=== PATIENT | female | born 1990 | race Caucasian/White ===

== ENCOUNTER → 2017-05-09 | Outpatient (REF) ==
[~2017-05-09] MED LIST: ACET50TA PO; ACET65TA; FERR325T; IBUP80TA PO; MACROBID; MAGN500T2; No home meds; ZOLO50TA PO; prenatal vitamin
--- NOTE | 2017-05-09 09:43 | REP ---
There is an Isabel thoracic spine three views: Comparison is 04/01/2011. There is mild scoliosis convex left in the mid-thoracic spine and right at the thoracolumbar junction. This is unchanged. Vertebral body heights, interspacing alignment are otherwise unremarkable. Mineralization is normal. The pedicles are unremarkable. There are surgical clips in the abdominal right upper quadrant. Impression: Minimal scoliosis, unchanged. Otherwise, negative thoracic spine. Signed by Evelio Dasilva MD 05/09/2017 09:34 A
== END ==
LOC: M SMT 09:07
PROVIDERS: ATTEND Internal Medicine
DX: M54.5 Low back pain (principal)

== ENCOUNTER → 2021-10-06 | Outpatient (REF) ==
[~2021-10-06] MED LIST changes: -ACET50TA PO; +BOTO10VL IM; +CYCL-707 PO; +EQ S0.65 NARES; +GABA-283 PO; +KETO10TAB PO; +MAPA500T2 PO; +MONT10TA10 PO; +PRAZ2CAP PO; +SERT-138 PO; +TOPA100T12 PO; +TRAZ-252 PO; +VITATAB74 PO; +ZOLP5TAB PO
[2021-10-06 15:51] LABS: RSV AMPLIFICATION NEGATIVE (NEGATIVE)
== END ==
LOC: MERGE 11:29 → M LABSMTC 11:29
PROVIDERS: ATTEND Family Medicine
DX: Z11.52 Encounter for screening for COVID-19 (principal); Z20.822 Contact with and (suspected) exposure to COVID-19

== ENCOUNTER → 2021-10-20 | Outpatient (REF) | LOC: M EMP 10:20 | PROVIDERS: ATTEND Family Medicine | DX: Z11.52 Encounter for screening for COVID-19 (principal); Z20.822 Contact with and (suspected) exposure to COVID-19 ==

== ENCOUNTER → 2022-01-18 | Outpatient (CLI) | payer OTHER ==
[~2022-01-18] MED LIST changes: -MONT10TA10 PO; +MONT10TA97 PO
[2022-01-18 14:05] LABS: ALBUMIN 3.5 GM/DL (3.2-5.2); ALT/SGPT 22 U/L (12-78); BILIRUBIN,TOTAL 0.2 MG/DL (0.2-1.0); BLOOD UREA NITROGEN 12 MG/DL (7-18); CALCIUM LEVEL 8.6 MG/DL (8.5-10.1); CARBON DIOXIDE LEVEL 24 MEQ/L (21-32); CHLORIDE LEVEL 110 MEQ/L (98-107); CHOLESTEROL LEVEL 176 MG/DL (<200); CHOLESTEROL RISK RATIO 4.888 (<5); CREATININE FOR GFR 0.77 MG/DL (0.55-1.30); GLOMERULAR FILTRATION RATE > 60.0 (>60); GLUCOSE, FASTING 100 MG/DL (70-100); HDL CHOLESTEROL 36 MG/DL (>40); LDL CHOLESTEROL 113 MG/DL (<100); NON-HDL-C 140 MG/DL; POTASSIUM SERUM 4.1 MEQ/L (3.5-5.1); SODIUM LEVEL 140 MEQ/L (136-145); TOTAL PROTEIN 6.7 GM/DL (6.4-8.2); TRIGLYCERIDES LEVEL 134 MG/DL (<150)
== END ==
LOC: M LAB 12:34
PROVIDERS: ATTEND Nurse Practitioner Family
DX: Z00.00 Encounter for general adult medical examination without abnormal findings (principal)

== ENCOUNTER → 2022-04-21 | Outpatient (CLI) | payer OTHER ==
[2022-04-21 18:16] LABS: HCG, SERUM QUALITATIVE NEGATIVE (NEGATIVE)
[2022-04-21 18:45] LABS: HCG, SERUM QUANTITATIVE < 1.0 MIU/ML
== END ==
LOC: M LAB 16:33
PROVIDERS: ATTEND Nurse Practitioner Family
DX: N91.1 Secondary amenorrhea (principal)

== ENCOUNTER → 2022-06-29 | Outpatient (REF) | payer OTHER ==
[2022-06-29 18:55] LABS: APPEARANCE, URINE MANUAL HAZY (CLEAR); COLOR, URINE MANUAL ORANGE (YELLOW); GLUCOSE, URINE (UA) MANUAL OBSCURED mg/dL (NEGATIVE); PROTEIN, URINE MANUAL OBSCURED mg/dL (NEGATIVE)
[2022-06-29 18:56] LABS: BILIRUBIN, URINE MANUAL OBSCURED (NEGATIVE); BLOOD URINE MANUAL POSITIVE (NEGATIVE); KETONE, URINE MANUAL OBSCURED mg/dL (NEGATIVE); LEUKOCYTE ESTERASE, URINE MAN POSITIVE (NEGATIVE); NITRITE, URINE MANUAL OBSCURED (NEGATIVE); UROBILINOGEN, URINE MANUAL OBSCURED mg/dl (NORMAL)
[2022-06-29 19:04] LABS: BACTERIA, URINE MOD AMOUNT; HYALINE CAST, URINE NONE SEEN /lpf (0-1); RBC, URINE NONE SEEN /hpf (0-3); SQUAMOUS EPITHELIAL CELL URINE MOD AMOUNT /hpf (SMALL AMT); WBC, URINE 15-20 /hpf (0-3)
== END ==
LOC: M LAB REF 17:09
PROVIDERS: ATTEND Nurse Practitioner Family
DX: R30.0 Dysuria (principal)

== ENCOUNTER 2022-08-05 00:04 | Emergency (ER) | payer OTHER ==
[~2022-08-05] VITALS: Ht 152.4 cm; Wt 71.4 kg
[2022-08-05 00:06] VITALS: BP 124/73
== END 2022-08-05 03:30 | disposition left against medical advice (07) ==
LOC: M ED 00:04
DX: Z53.21 Procedure and treatment not carried out due to patient leaving prior to being seen by health care provider (principal)

== ENCOUNTER 2022-09-06 19:43 | Emergency (ER) | payer OTHER ==
[~2022-09-06] VITALS: Ht 154.9 cm; Wt 71.3 kg
[2022-09-06] MEDS ORDERED: IBUPROFEN 600MG TAB PO ONE (23:05)
[2022-09-06] MEDS ORDERED: GNPLIQ67 PO (23:59)
[2022-09-06] MEDS ORDERED: DAYT1LIQ PO (23:59)
[2022-09-07 00:19] VITALS: BP 112/61
== END 2022-09-07 00:20 | disposition home or self-care (01) ==
LOC: M ED 19:43
DX: J06.9 Acute upper respiratory infection, unspecified (principal); F41.9 Anxiety disorder, unspecified; F32.9 Major depressive disorder, single episode, unspecified; J30.1 Allergic rhinitis due to pollen; F17.200 Nicotine dependence, unspecified, uncomplicated; Z79.899 Other long term (current) drug therapy; Z88.2 Allergy status to sulfonamides

== ENCOUNTER → 2022-09-12 | Outpatient (CLI) | payer OTHER ==
[~2022-09-12] MED LIST changes: +DAYT1LIQ PO; +GNPLIQ67 PO
== END ==
LOC: M WHC 12:20
PROVIDERS: ATTEND Registered Nurse
DX: N63.32 Unspecified lump in axillary tail of the left breast (principal)

== ENCOUNTER → 2022-10-26 | Outpatient (CLI) | payer OTHER ==
[2022-10-26 15:04] LABS: BASO % 0.3 % (0.0-1.0); EOS # 0.1 10^3/uL (0.0-0.5); EOS % 1.2 % (0.0-3.0); HEMATOCRIT 44.5 % (36.0-47.0); LYMPH # 2.6 10^3/uL (1.5-5.0); LYMPH % 23.1 % (24.0-44.0); MEAN CORPUSCULAR HEMOGLOBIN 29.6 pg (27.0-33.0); MEAN CORPUSCULAR HGB CONC 33.7 g/dl (32.0-36.5); MEAN CORPUSCULAR VOLUME 87.8 fl (80.0-96.0); MONO # 0.7 10^3/uL (0.0-0.8); MONO % 5.9 % (2.0-8.0); NEUTROPHILS # 7.8 10^3/uL (1.5-8.5); NEUTROPHILS % 69.2 % (36.0-66.0); PLATELET COUNT, AUTOMATED 396 10^3/uL (150-450); RED BLOOD COUNT 5.07 10^6/uL (4.00-5.40); WHITE BLOOD COUNT 11.3 10^3/uL (4.0-10.0)
[2022-10-26 15:15] LABS: INR 0.95; PROTHROMBIN TIME 12.9 SECONDS (12.5-14.5)
[2022-10-26 15:31] LABS: ALBUMIN 3.7 G/DL (3.2-5.2); ALKALINE PHOSPHATASE 105 U/L (46-116); ALT/SGPT 18 U/L (7.0-40); AST/SGOT 20 U/L (<34); BILIRUBIN,TOTAL 0.5 MG/DL (0.3-1.2); BLOOD UREA NITROGEN 9 MG/DL (9-23); CARBON DIOXIDE LEVEL 23 MMOL/L (20-31); CHLORIDE LEVEL 104 MMOL/L (98-107); CREATININE FOR GFR 0.56 MG/DL (0.55-1.30); GLOMERULAR FILTRATION RATE > 60.0 (>60); GLUCOSE, FASTING 89 MG/DL (60-100); POTASSIUM SERUM 3.8 MMOL/L (3.5-5.1); SODIUM LEVEL 141 MMOL/L (136-145); TOTAL PROTEIN 6.7 G/DL (5.7-8.2)
[2022-10-26 15:33] LABS: FREE T4 1.08 NG/DL (0.89-1.76); THYROID STIMULATING HORMONE 0.528 uIU/ML (0.55-4.78)
== END ==
LOC: M LAB 14:02
PROVIDERS: ATTEND Registered Nurse
DX: L98.9 Disorder of the skin and subcutaneous tissue, unspecified (principal)

== ENCOUNTER 2023-01-03 23:47 | Emergency (ER) | payer OTHER ==
[~2023-01-03] VITALS: Ht 152.4 cm; Wt 65.4 kg
[2023-01-04 00:13] LABS: URINE PREG TEST NEGATIVE (NEGATIVE)
[2023-01-04 00:20] LABS: APPEARANCE, URINE HAZY (CLEAR); BACTERIA, URINE AUTO 1+ (NEGATIVE); BILIRUBIN, URINE AUTO NEGATIVE (NEGATIVE); BLOOD, URINE BLOOD 3+ (NEGATIVE); COLOR, URINE YELLOW (YELLOW); GLUCOSE, URINE (UA) AUTO NEGATIVE (NEGATIVE); KETONE, URINE AUTO NEGATIVE (NEGATIVE); LEUKOCYTE ESTERASE, URINE AUTO 1+ (NEGATIVE); MUCUS, URINE SMALL (NEGATIVE); NITRITE, URINE AUTO NEGATIVE (NEGATIVE); PROTEIN, URINE AUTO NEGATIVE (NEGATIVE); RBC, URINE AUTO 3 /HPF (0-3); SPECIFIC GRAVITY URINE AUTO 1.009 (1.002-1.035); SQUAMOUS EPITHELIAL CELL UR AU 11 /HPF (0-6); UROBILINOGEN, URINE AUTO 0.2 mg/dL (0.0-2.0); WBC, URINE AUTO 5 /HPF (0-3)
[2023-01-04 00:53] LABS: BASO # 0.1 10^3/uL (0.0-0.2); BASO % 0.4 % (0.0-1.0); EOS # 0.2 10^3/uL (0.0-0.5); EOS % 1.1 % (0.0-3.0); HEMATOCRIT 44.5 % (36.0-47.0); HEMOGLOBIN 14.9 g/dl (12.0-15.5); LYMPH # 3.2 10^3/uL (1.5-5.0); MEAN CORPUSCULAR HEMOGLOBIN 29.9 pg (27.0-33.0); MEAN CORPUSCULAR HGB CONC 33.5 g/dl (32.0-36.5); MEAN CORPUSCULAR VOLUME 89.4 fl (80.0-96.0); MONO # 0.8 10^3/uL (0.0-0.8); MONO % 5.9 % (2.0-8.0); NEUTROPHILS # 9.1 10^3/uL (1.5-8.5); NEUTROPHILS % 68.4 % (36.0-66.0); PLATELET COUNT, AUTOMATED 352 10^3/uL (150-450); RED BLOOD COUNT 4.98 10^6/uL (4.00-5.40); WHITE BLOOD COUNT 13.3 10^3/uL (4.0-10.0)
[2023-01-04] MEDS ORDERED: ACETAMINOPHEN 325 MG TAB PO ONE (02:35)
[2023-01-04 03:01] LABS: GC DNA AMPLIFICATION NEGATIVE (NEGATIVE)
[2023-01-04 03:23] VITALS: BP 133/81
== END 2023-01-04 03:31 | disposition home or self-care (01) ==
LOC: M ED 23:47
DX: N93.9 Abnormal uterine and vaginal bleeding, unspecified (principal); F17.200 Nicotine dependence, unspecified, uncomplicated

== ENCOUNTER 2023-01-12 22:52 | Emergency (ER) | payer OTHER ==
[~2023-01-12] VITALS: Ht 152.4 cm; Wt 65.7 kg
[2023-01-12 22:53] VITALS: BP 134/87
[2023-01-12] MEDS ORDERED: CVS10CAP7 PO (22:58)
== END 2023-01-13 02:01 | disposition left against medical advice (07) ==
LOC: M ED 22:52
DX: Z53.21 Procedure and treatment not carried out due to patient leaving prior to being seen by health care provider (principal)

== ENCOUNTER 2023-02-14 21:46 | Emergency (ER) | payer OTHER ==
[~2023-02-14] VITALS: Ht 152.4 cm; Wt 64.0 kg
[2023-02-14 21:46] VITALS: BP 116/80
[~2023-02-14 21:46] MED LIST changes: +CVS10CAP7 PO
[2023-02-14] MEDS ORDERED: ALBUTEROL SULFATE 2.5MG/0.5ML INH NEB SOLN NEB ONE (23:15)
[2023-02-14] MEDS ORDERED: ACETAMINOPHEN 325 MG TAB PO ONE (23:45)
== END 2023-02-15 01:05 | disposition home or self-care (01) ==
LOC: M ED 21:46
DX: J06.9 Acute upper respiratory infection, unspecified (principal); J45.909 Unspecified asthma, uncomplicated; G43.909 Migraine, unspecified, not intractable, without status migrainosus; F41.9 Anxiety disorder, unspecified; F32.A Depression, unspecified; F17.210 Nicotine dependence, cigarettes, uncomplicated; Z88.2 Allergy status to sulfonamides; Z79.899 Other long term (current) drug therapy

== ENCOUNTER 2023-10-25 01:23 | Emergency (ER) | payer OTHER ==
[~2023-10-25] VITALS: Ht 152.4 cm; Wt 65.4 kg
[2023-10-25 01:23] VITALS: BP 140/65; TEMP 97.3; O2SAT 97
[~2023-10-25 01:23] MED LIST changes: +AMOX875T2 PO; +CIPR7.5D5 OTIC; -GABA-283 PO; +GABA-284 PO
[2023-10-25 02:32] LABS: BASO % 0.3 % (0.0-1.0); EOS # 0.2 10^3/uL (0.0-0.5); EOS % 1.5 % (0.0-3.0); HEMATOCRIT 44.7 % (36.0-47.0); HEMOGLOBIN 14.6 g/dl (12.0-15.5); LYMPH # 3.1 10^3/uL (1.5-5.0); LYMPH % 26.6 % (24.0-44.0); MEAN CORPUSCULAR HEMOGLOBIN 29.6 pg (27.0-33.0); MEAN CORPUSCULAR HGB CONC 32.7 g/dl (32.0-36.5); MEAN CORPUSCULAR VOLUME 90.5 fl (80.0-96.0); MONO # 0.9 10^3/uL (0.0-0.8); MONO % 7.3 % (2.0-8.0); NEUTROPHILS # 7.5 10^3/uL (1.5-8.5); PLATELET COUNT, AUTOMATED 358 10^3/uL (150-450); RED BLOOD COUNT 4.94 10^6/uL (4.00-5.40); WHITE BLOOD COUNT 11.7 10^3/uL (4.0-10.0)
[2023-10-25 03:01] LABS: LIPASE 36 U/L (12-53)
[2023-10-25 03:03] LABS: ALBUMIN 3.8 G/DL (3.2-5.2); ALKALINE PHOSPHATASE 105 U/L (46-116); ALT/SGPT 13 U/L (7.0-40); AST/SGOT 16 U/L (<34); BILIRUBIN,DIRECT < 0.1 MG/DL (<0.4); BILIRUBIN,TOTAL 0.3 MG/DL (0.3-1.2); BLOOD UREA NITROGEN 8 MG/DL (9-23); CALCIUM LEVEL 9.9 MG/DL (8.5-10.1); CARBON DIOXIDE LEVEL 29 MMOL/L (20-31); CHLORIDE LEVEL 106 MMOL/L (98-107); CREATININE FOR GFR 0.52 MG/DL (0.55-1.30); GLOMERULAR FILTRATION RATE > 60.0 (>60); GLUCOSE, FASTING 94 MG/DL (60-100); POTASSIUM SERUM 4.2 MMOL/L (3.5-5.1); SODIUM LEVEL 139 MMOL/L (136-145); TOTAL PROTEIN 7.4 G/DL (5.7-8.2)
== END 2023-10-25 04:46 | disposition left against medical advice (07) ==
LOC: M ED 01:23
DX: Z53.21 Procedure and treatment not carried out due to patient leaving prior to being seen by health care provider (principal)

== ENCOUNTER → 2023-12-20 | Outpatient (REF) | payer OTHER ==
[2023-12-20 17:07] LABS: BASO % 0.3 % (0.0-1.0); EOS # 0.1 10^3/uL (0.0-0.5); EOS % 1.5 % (0.0-3.0); HEMATOCRIT 39.9 % (36.0-47.0); HEMOGLOBIN 13.3 g/dl (12.0-15.5); LYMPH # 2.1 10^3/uL (1.5-5.0); LYMPH % 24.2 % (24.0-44.0); MEAN CORPUSCULAR HEMOGLOBIN 29.7 pg (27.0-33.0); MEAN CORPUSCULAR HGB CONC 33.3 g/dl (32.0-36.5); MEAN CORPUSCULAR VOLUME 89.1 fl (80.0-96.0); MONO # 0.6 10^3/uL (0.0-0.8); MONO % 7.1 % (2.0-8.0); NEUTROPHILS # 5.8 10^3/uL (1.5-8.5); NEUTROPHILS % 66.7 % (36.0-66.0); PLATELET COUNT, AUTOMATED 325 10^3/uL (150-450); RED BLOOD COUNT 4.48 10^6/uL (4.00-5.40); WHITE BLOOD COUNT 8.7 10^3/uL (4.0-10.0)
[2023-12-20 17:18] LABS: ALBUMIN 3.3 G/DL (3.2-5.2); ALKALINE PHOSPHATASE 83 U/L (46-116); ALT/SGPT 18 U/L (7.0-40); AST/SGOT 18 U/L (<34); BILIRUBIN,TOTAL 0.3 MG/DL (0.3-1.2); BLOOD UREA NITROGEN 5 MG/DL (9-23); CALCIUM LEVEL 8.4 MG/DL (8.5-10.1); CARBON DIOXIDE LEVEL 26 MMOL/L (20-31); CHLORIDE LEVEL 107 MMOL/L (98-107); CHOLESTEROL LEVEL 161 MG/DL (<200); CHOLESTEROL RISK RATIO 4.96 (<5); CREATININE FOR GFR 0.59 MG/DL (0.55-1.30); GLOMERULAR FILTRATION RATE > 60.0 (>60); GLUCOSE, FASTING 111 MG/DL (60-100); HDL CHOLESTEROL 32.4 MG/DL (>40); LDL CHOLESTEROL 95.6 MG/DL (<100); MAGNESIUM LEVEL 1.7 MG/DL (1.8-2.4); NON-HDL-C 128.6 MG/DL; POTASSIUM SERUM 3.9 MMOL/L (3.5-5.1); SODIUM LEVEL 137 MMOL/L (136-145); TOTAL PROTEIN 6.3 G/DL (5.7-8.2); TRIGLYCERIDES LEVEL 165 MG/DL (<150)
[2023-12-20 17:20] LABS: THYROID STIMULATING HORMONE 3.733 uIU/ML (0.55-4.78)
[2023-12-20 17:22] LABS: HCG, SERUM QUALITATIVE NEGATIVE (NEGATIVE); TOTAL 25(OH) VITAMIN D 32.5 NG/ML (20.0-100.0)
[2023-12-20 17:46] LABS: HIV 1&2 SCREEN NEGATIVE (NEGATIVE)
[2023-12-20 17:54] LABS: HEPATITIS C VIRUS ABY INDEX 0.02 INDEX (<0.8)
[2023-12-20 18:11] LABS: HEMOGLOBIN A1c 4.9 % (4.0-6.0)
== END ==
LOC: M LAB REF 16:21
PROVIDERS: ATTEND Physician Assistant
DX: Z31.9 Encounter for procreative management, unspecified (principal); E66.9 Obesity, unspecified; E55.9 Vitamin D deficiency, unspecified; R53.83 Other fatigue

== ENCOUNTER → 2024-01-22 | Outpatient (CLI) | payer OTHER ==
[2024-01-22 10:32] LABS: BASO % 0.3 % (0.0-1.0); EOS # 0.2 10^3/uL (0.0-0.5); EOS % 1.2 % (0.0-3.0); HEMATOCRIT 42.6 % (36.0-47.0); HEMOGLOBIN 14.1 g/dl (12.0-15.5); LYMPH # 1.9 10^3/uL (1.5-5.0); LYMPH % 15.1 % (24.0-44.0); MEAN CORPUSCULAR HEMOGLOBIN 29.5 pg (27.0-33.0); MEAN CORPUSCULAR HGB CONC 33.1 g/dl (32.0-36.5); MEAN CORPUSCULAR VOLUME 89.1 fl (80.0-96.0); MONO # 0.8 10^3/uL (0.0-0.8); MONO % 5.8 % (2.0-8.0); NEUTROPHILS # 9.9 10^3/uL (1.5-8.5); NEUTROPHILS % 77.1 % (36.0-66.0); PLATELET COUNT, AUTOMATED 341 10^3/uL (150-450); RED BLOOD COUNT 4.78 10^6/uL (4.00-5.40); WHITE BLOOD COUNT 12.9 10^3/uL (4.0-10.0)
[2024-01-22 10:47] LABS: ERYTHROCYTE SEDIMENTATION RATE 27 mm/hr (0-20)
[2024-01-22 10:58] LABS: ALBUMIN 3.8 G/DL (3.2-5.2); ALKALINE PHOSPHATASE 107 U/L (46-116); ALT/SGPT 45 U/L (7.0-40); AST/SGOT 32 U/L (<34); BILIRUBIN,TOTAL 0.2 MG/DL (0.3-1.2); BLOOD UREA NITROGEN 11 MG/DL (9-23); CALCIUM LEVEL 10.1 MG/DL (8.5-10.1); CARBON DIOXIDE LEVEL 27 MMOL/L (20-31); CHLORIDE LEVEL 105 MMOL/L (98-107); CREATININE FOR GFR 0.68 MG/DL (0.55-1.30); GLOMERULAR FILTRATION RATE > 60.0 (>60); GLUCOSE, FASTING 96 MG/DL (60-100); RHEUMATOID FACTOR QUANT 7.3 IU/ML (<14); SODIUM LEVEL 136 MMOL/L (136-145)
[2024-01-22 11:00] LABS: THYROID STIMULATING HORMONE 3.032 uIU/ML (0.55-4.78); TOTAL 25(OH) VITAMIN D 28.9 NG/ML (20.0-100.0)
[2024-01-23 13:07] LABS: ANTINUCLEAR ANTIBODIES DIRECT Negative (Negative)
== END ==
LOC: M LAB 09:37
PROVIDERS: ATTEND Psychiatry & Neurology Neurology
DX: R51.9 Headache, unspecified (principal)

== ENCOUNTER 2024-03-09 14:55 | Emergency (ER) | payer OTHER ==
[~2024-03-09] VITALS: Ht 152.4 cm; Wt 66.5 kg
[2024-03-09] MEDS ORDERED: OMEP-173 (15:08)
[2024-03-09] MEDS ORDERED: BUPR1TAB52 (15:08)
[2024-03-09] MEDS ORDERED: TRAZ-257 (15:08)
[2024-03-09] MEDS ORDERED: SERT50TA29 PO (15:08)
[2024-03-09] MEDS: ACETAMINOPHEN 500 MG TAB PO ONE (16:41)
[2024-03-09] MEDS: ONDANSETRON 4MG ORAL DISINTEGRATING TAB PO ONE (16:41)
[2024-03-09] MEDS: CORTISPORIN AU ONE (17:05)
[2024-03-09 17:16] VITALS: BP 132/95; TEMP 97.4; O2SAT 97
== END 2024-03-09 17:19 | disposition home or self-care (01) ==
LOC: M ED 14:55
DX: J06.9 Acute upper respiratory infection, unspecified (principal); R51.9 Headache, unspecified; J45.909 Unspecified asthma, uncomplicated; F32.A Depression, unspecified; F41.9 Anxiety disorder, unspecified; Z88.2 Allergy status to sulfonamides

== ENCOUNTER 2024-04-22 18:51 | Emergency (ER) | payer OTHER ==
[~2024-04-22] VITALS: Ht 165.1 cm; Wt 65.0 kg
[~2024-04-22 18:51] MED LIST changes: +BUPR1TAB52; +OMEP-173; +SERT50TA29 PO; +TRAZ-257
[2024-04-22 20:55] LABS: BASO % 0.1 % (0.0-1.0); EOS % 0.1 % (0.0-3.0); HEMOGLOBIN 12.4 g/dl (12.0-15.5); LYMPH # 1.8 10^3/uL (1.5-5.0); LYMPH % 13.2 % (24.0-44.0); MEAN CORPUSCULAR HEMOGLOBIN 29.9 pg (27.0-33.0); MEAN CORPUSCULAR HGB CONC 34.4 g/dl (32.0-36.5); MEAN CORPUSCULAR VOLUME 86.7 fl (80.0-96.0); MONO # 0.7 10^3/uL (0.0-0.8); MONO % 5.3 % (2.0-8.0); NEUTROPHILS % 80.9 % (36.0-66.0); PLATELET COUNT, AUTOMATED 328 10^3/uL (150-450); RED BLOOD COUNT 4.15 10^6/uL (4.00-5.40); WHITE BLOOD COUNT 13.6 10^3/uL (4.0-10.0)
[2024-04-22] MEDS: NS 1,000 ML IV ONE ×2 (21:08→22:20)
[2024-04-22] MEDS: diphenhydrAMINE 50MG/ML VIAL IV ONE (21:09)
[2024-04-22] MEDS: METOCLOPRAMIDE INJ 10MG/2ML VIAL IV ONE (21:09)
[2024-04-22] MEDS: KETOROLAC 30 MG/ML 1ML VIAL IV ONE (21:10)
[2024-04-22 21:16] LABS: CK-MB VALUE MASS < 1.0 NG/ML (<3.6)
[2024-04-22 21:20] LABS: PROLACTIN 2.87 NG/ML
[2024-04-22 21:21] LABS: ALBUMIN 3.4 G/DL (3.2-5.2); ALKALINE PHOSPHATASE 89 U/L (46-116); ALT/SGPT 14 U/L (7.0-40); AST/SGOT 12 U/L (<34); BILIRUBIN,TOTAL 0.3 MG/DL (0.3-1.2); BLOOD UREA NITROGEN 8 MG/DL (9-23); CALCIUM LEVEL 8.9 MG/DL (8.5-10.1); CARBON DIOXIDE LEVEL 26 MMOL/L (20-31); CHLORIDE LEVEL 110 MMOL/L (98-107); CPK CREATINE PHOSPHOKINASE 86 U/L (34-145); CREATININE FOR GFR 0.61 MG/DL (0.55-1.30); GLOMERULAR FILTRATION RATE > 60.0 (>60); GLUCOSE, FASTING 87 MG/DL (60-100); MB/CK RELATIVE INDEX 1.16 (< OR =4); POTASSIUM SERUM 3.5 MMOL/L (3.5-5.1); SODIUM LEVEL 142 MMOL/L (136-145); TOTAL PROTEIN 6.4 G/DL (5.7-8.2)
[2024-04-22] MEDS ORDERED: ISOVUE-370 76% 100ML VIAL As Ordered ONE (21:23)
[2024-04-22] MEDS ORDERED: NITROFURANTOIN (MACROBID) 100 MG CAP PO ONE (22:40)
[2024-04-22] MEDS: FOSFOMYCIN TROMETHAMINE 3 GM POWDER PACKET (MONUROL) PO ONE (23:27)
[2024-04-23 00:28] VITALS: BP 101/66; TEMP 98.1; O2SAT 98
== END 2024-04-23 00:29 | disposition home or self-care (01) ==
LOC: M ED 18:51 → EDBD 18:51 → M ED 04-23 00:29
DX: G43.809 Other migraine, not intractable, without status migrainosus (principal); N39.0 Urinary tract infection, site not specified; M41.9 Scoliosis, unspecified; F17.200 Nicotine dependence, unspecified, uncomplicated; Z79.899 Other long term (current) drug therapy; Z88.2 Allergy status to sulfonamides
CPT/HCPCS: 70450; 70496; 70498; 71046; 80053; 81001; 82550; 82553; 83605; 84146; 84484; 85025; 87088; 87186; 93005; 96361; 96374; 96375; 99284; J1100; J1200; J1885; J2765; Q9967

== ENCOUNTER 2024-05-21 14:02 | Outpatient (RCR) | payer OTHER | END 2024-05-22 | LOC: M PT 14:02 | PROVIDERS: ATTEND Physician Assistant | DX: M54.9 Dorsalgia, unspecified (principal) ==

== ENCOUNTER 2024-06-12 14:15 | Outpatient (RCR) | payer OTHER | END 2024-06-22 | LOC: M PT 14:15 | PROVIDERS: ATTEND Physician Assistant | DX: M54.9 Dorsalgia, unspecified (principal) ==

== ENCOUNTER 2024-08-03 12:51 | Emergency (ER) | payer OTHER ==
[~2024-08-03] VITALS: Ht 152.4 cm; Wt 63.1 kg
[2024-08-03 14:16] LABS: BASO % 0.2 % (0.0-1.0); EOS # 0.2 10^3/uL (0.0-0.5); EOS % 1.2 % (0.0-3.0); HEMOGLOBIN 13.6 g/dl (12.0-15.5); LYMPH # 1.4 10^3/uL (1.5-5.0); LYMPH % 11.2 % (24.0-44.0); MEAN CORPUSCULAR HEMOGLOBIN 29.4 pg (27.0-33.0); MEAN CORPUSCULAR HGB CONC 34.9 g/dl (32.0-36.5); MEAN CORPUSCULAR VOLUME 84.4 fl (80.0-96.0); MONO % 7.9 % (2.0-8.0); NEUTROPHILS # 10.1 10^3/uL (1.5-8.5); NEUTROPHILS % 79.3 % (36.0-66.0); PLATELET COUNT, AUTOMATED 327 10^3/uL (150-450); RED BLOOD COUNT 4.62 10^6/uL (4.00-5.40); WHITE BLOOD COUNT 12.7 10^3/uL (4.0-10.0)
[2024-08-03 14:38] LABS: ALBUMIN 3.2 G/DL (3.2-5.2); ALKALINE PHOSPHATASE 111 U/L (46-116); ALT/SGPT 23 U/L (7.0-40); AST/SGOT 53 U/L (<34); BILIRUBIN,DIRECT < 0.1 MG/DL (<0.4); BILIRUBIN,TOTAL 0.3 MG/DL (0.3-1.2); LIPASE 27 U/L (12-53); TOTAL PROTEIN 7.3 G/DL (5.7-8.2)
[2024-08-03 14:53] LABS: HCG, SERUM QUALITATIVE NEGATIVE (NEGATIVE)
[2024-08-03] MEDS: POTASSIUM CHLORIDE 10MEQ SR TABLET PO ONE (15:36)
[2024-08-03] MEDS: BENZONATATE 100MG CAPSULE PO ONE (15:36)
[2024-08-03] MEDS: IBUPROFEN 600MG TAB PO ONE (15:36)
[2024-08-03 17:12] VITALS: BP 102/63; TEMP 98; O2SAT 93
== END 2024-08-03 17:25 | disposition home or self-care (01) ==
LOC: M ED 12:51
DX: E87.6 Hypokalemia (principal); E86.0 Dehydration; B34.9 Viral infection, unspecified; J45.909 Unspecified asthma, uncomplicated; F41.9 Anxiety disorder, unspecified; G43.909 Migraine, unspecified, not intractable, without status migrainosus; F17.200 Nicotine dependence, unspecified, uncomplicated

== ENCOUNTER → 2024-08-16 | Outpatient (REF) | payer OTHER | LOC: M LAB REF 16:26 | PROVIDERS: ATTEND Physician Assistant | DX: N92.5 Other specified irregular menstruation (principal) ==

== ENCOUNTER 2024-10-04 14:15 | Outpatient (RCR) | payer OTHER | END 2024-10-22 | LOC: M PT 14:15 | PROVIDERS: ATTEND Physician Assistant | DX: M75.92 Shoulder lesion, unspecified, left shoulder (principal) ==

== ENCOUNTER → 2025-01-29 | Outpatient (CLI) | payer OTHER | LOC: M RAD 15:56 | PROVIDERS: ATTEND Physician Assistant | DX: M79.671 Pain in right foot (principal) ==

== ENCOUNTER → 2025-02-19 | Outpatient (CLI) | payer OTHER ==
[~2025-02-19] MED LIST changes: +BUPR-670; -BUPR1TAB52
[2025-02-19 17:33] LABS: APPEARANCE, URINE CLOUDY (CLEAR); BACTERIA, URINE AUTO 1+ (NEGATIVE); BILIRUBIN, URINE AUTO NEGATIVE (NEGATIVE); BLOOD, URINE BLOOD NEGATIVE (NEGATIVE); COLOR, URINE YELLOW (YELLOW); GLUCOSE, URINE (UA) AUTO NEGATIVE (NEGATIVE); KETONE, URINE AUTO NEGATIVE (NEGATIVE); LEUKOCYTE ESTERASE, URINE AUTO 3+ (NEGATIVE); MUCUS, URINE SMALL (NEGATIVE); NITRITE, URINE AUTO NEGATIVE (NEGATIVE); PROTEIN, URINE AUTO NEGATIVE (NEGATIVE); RBC, URINE AUTO 0 /HPF (0-3); SPECIFIC GRAVITY URINE AUTO 1.021 (1.002-1.035); SQUAMOUS EPITHELIAL CELL UR AU 17 /HPF (0-6); UROBILINOGEN, URINE AUTO 0.2 mg/dL (0.0-2.0); WBC, URINE AUTO 174 /HPF (0-3)
[2025-02-19 18:02] LABS: HEMATOCRIT 43.2 % (36.0-47.0); HEMOGLOBIN 14.1 g/dl (12.0-15.5); MEAN CORPUSCULAR HEMOGLOBIN 29.3 pg (27.0-33.0); MEAN CORPUSCULAR HGB CONC 32.6 g/dl (32.0-36.5); MEAN CORPUSCULAR VOLUME 89.6 fl (80.0-96.0); PLATELET COUNT, AUTOMATED 317 10^3/uL (150-450); RED BLOOD COUNT 4.82 10^6/uL (4.00-5.40); WHITE BLOOD COUNT 7.5 10^3/uL (4.0-10.0)
[2025-02-19 18:14] LABS: Trichomonas vaginalis (AMP) POSITIVE (NEGATIVE)
[2025-02-19 18:19] LABS: ALKALINE PHOSPHATASE 109 U/L (35-104); ALT/SGPT 23 U/L (7.0-40); AST/SGOT 18 U/L (<34); BILIRUBIN,TOTAL 0.2 MG/DL (0.3-1.2); BLOOD UREA NITROGEN 13 MG/DL (9-23); CALCIUM LEVEL 9.3 MG/DL (8.5-10.1); CARBON DIOXIDE LEVEL 29 MMOL/L (20-31); CHLORIDE LEVEL 103 MMOL/L (98-107); CHOLESTEROL LEVEL 207 MG/DL (<200); CHOLESTEROL RISK RATIO 4.02 (<5); CK-MB VALUE MASS < 1.0 NG/ML (<3.6); CPK CREATINE PHOSPHOKINASE 106 U/L (34-145); CREATININE FOR GFR 0.62 MG/DL (0.55-1.30); GLOMERULAR FILTRATION RATE > 90.0 (>60); GLUCOSE, FASTING 78 MG/DL (60-100); HDL CHOLESTEROL 51.4 MG/DL (>40); LDL CHOLESTEROL 117.6 MG/DL (<100); MAGNESIUM LEVEL 1.8 MG/DL (1.8-2.4); MB/CK RELATIVE INDEX 0.94 (< OR =4); NON-HDL-C 155.6 MG/DL; POTASSIUM SERUM 3.9 MMOL/L (3.5-5.1); SODIUM LEVEL 138 MMOL/L (136-145); THYROID STIMULATING HORMONE 1.678 uIU/ML (0.55-4.78); TOTAL 25(OH) VITAMIN D 30.7 NG/ML (20.0-100.0); TOTAL PROTEIN 7.4 G/DL (5.7-8.2); TRIGLYCERIDES LEVEL 190 MG/DL (<150)
[2025-02-19 18:43] LABS: GC DNA AMPLIFICATION NEGATIVE (NEGATIVE)
[2025-02-19 18:51] LABS: HIV 1&2 SCREEN NEGATIVE (NEGATIVE)
[2025-02-19 18:58] LABS: HEPATITIS C VIRUS ABY INDEX 0.04 INDEX (<0.8)
[2025-02-19 18:59] LABS: HEMOGLOBIN A1c 5.1 % (4.0-6.0)
== END ==
LOC: M RAD 16:34
PROVIDERS: ATTEND Physician Assistant
DX: R07.9 Chest pain, unspecified (principal); E55.9 Vitamin D deficiency, unspecified; R35.89 Other polyuria; E66.3 Overweight; Z11.9 Encounter for screening for infectious and parasitic diseases, unspecified

== ENCOUNTER 2025-05-04 23:27 | Emergency (ER) | payer OTHER ==
[~2025-05-04] VITALS: Ht 152.4 cm; Wt 66.2 kg
[~2025-05-04 23:27] MED LIST changes: -OMEP-173; +OMEP-173 PO
[2025-05-05 00:05] LABS: IONIZED CALCIUM 4.8 MG/DL (4.5-5.3)
[2025-05-05 00:21] LABS: BASO # 0.0 10^3/uL (0.0-0.2); BASO % 0.2 % (0.0-1.0); EOS # 0.2 10^3/uL (0.0-0.5); EOS % 2.0 % (0.0-3.0); LYMPH # 2.6 10^3/uL (1.5-5.0); LYMPH % 27.2 % (24.0-44.0); MONO # 0.8 10^3/uL (0.0-0.8); MONO % 8.2 % (2.0-8.0); NEUTROPHILS # 5.9 10^3/uL (1.5-8.5); NEUTROPHILS % 62.2 % (36.0-66.0); PLATELET COUNT, AUTOMATED 307 10^3/uL (150-450)
[2025-05-05 00:27] VITALS: TEMP 97.2
[2025-05-05 00:39] LABS: ALT/SGPT 18 U/L (7.0-40); AST/SGOT 20 U/L (<34); CALCIUM LEVEL 9.3 MG/DL (8.5-10.1); CARBON DIOXIDE LEVEL 26 MMOL/L (20-31); CHLORIDE LEVEL 104 MMOL/L (98-107); CREATININE FOR GFR 0.64 MG/DL (0.55-1.30); GLOMERULAR FILTRATION RATE > 90.0 (>60); MAGNESIUM LEVEL 1.8 MG/DL (1.8-2.4); PHOSPHORUS LEVEL 2.7 MG/DL (2.5-4.9); POTASSIUM SERUM 3.6 MMOL/L (3.5-5.1); SODIUM LEVEL 142 MMOL/L (136-145)
[2025-05-05 01:01] VITALS: BP 115/77
[2025-05-05] MEDS: ONDANSETRON 4MG 2ML VIAL IV ONE (01:46)
[2025-05-05] MEDS: KETOROLAC 30 MG/ML 1 ML VIAL IV ONE (01:46)
[2025-05-05 01:48] LABS: KETONE, URINE AUTO RFX NEGATIVE (NEGATIVE); LEUKOCYTE ESTERASE UR AUTO RFX NEGATIVE (NEGATIVE); NITRITE, URINE AUTO RFX NEGATIVE (NEGATIVE); RBC, URINE AUTO RFX 0 /HPF (0-3); SQUAM EPITHELIAL CELL UR AURFX 4 /HPF (0-6); WBC, URINE AUTO RFX 1 /HPF (0-3)
[2025-05-05 01:56] LABS: AMPHETAMINES LEVEL URINE NEGATIVE (NEGATIVE); PHENCYCLIDINE URINE NEGATIVE (NEGATIVE)
[2025-05-05 01:57] LABS: BARBITURATES URINE NEGATIVE (NEGATIVE); BENZODIAZEPINES URINE NEGATIVE (NEGATIVE); COCAINE METABOLITE URINE NEGATIVE (NEGATIVE); METHADONE URINE NEGATIVE (NEGATIVE); OPIATES URINE NEGATIVE (NEGATIVE)
[2025-05-05 02:08] LABS: CK-MB VALUE MASS < 1.0 NG/ML (<3.6)
[2025-05-05 02:14] LABS: CANNABINOIDS URINE POSITIVE (NEGATIVE); CPK CREATINE PHOSPHOKINASE 78 U/L (34-145)
[2025-05-05] MEDS ORDERED: GABA-1490 PO (02:31)
[2025-05-05] MEDS ORDERED: VENTAER INH (02:31)
[2025-05-05] MEDS ORDERED: COLC0.6T47 PO (02:31)
[2025-05-05] MEDS ORDERED: MULT-90 PO (02:31)
[2025-05-05] MEDS ORDERED: HOME MED LIST COMPLETE! XX SCH (02:35)
[2025-05-05 03:42] VITALS: O2SAT 98
== END 2025-05-05 04:15 | disposition home or self-care (01) ==
LOC: M ED 23:27
DX: R56.9 Unspecified convulsions (principal); R07.89 Other chest pain; Z88.2 Allergy status to sulfonamides; F41.0 Panic disorder [episodic paroxysmal anxiety]; Z79.899 Other long term (current) drug therapy
CPT/HCPCS: 80048; 80076; 80307; 81001; 82140; 82330; 82550; 82553; 83605; 83735; 84100; 84484; 85025; 93005; 93041; 94760; 96374; 96375; 99285; J1885; J2405

== ENCOUNTER → 2025-05-13 | Outpatient (CLI) | payer OTHER ==
[~2025-05-13] MED LIST changes: +COLC0.6T47 PO; +GABA-1490 PO; +MULT-90 PO; +VENTAER INH
== END ==
LOC: M PLALAB 15:24
PROVIDERS: ATTEND Podiatrist Foot & Ankle Surgery
DX: M10.071 Idiopathic gout, right ankle and foot (principal)

== ENCOUNTER → 2025-06-11 | Outpatient (CLI) | payer OTHER | LOC: M CARPUL 14:40 | PROVIDERS: ATTEND Physician Assistant | DX: R07.9 Chest pain, unspecified (principal) ==

== ENCOUNTER → 2025-06-26 | Outpatient (CLI) | payer OTHER | LOC: M RAD 16:19 | PROVIDERS: ATTEND Nurse Practitioner Family | DX: G40.309 Generalized idiopathic epilepsy and epileptic syndromes, not intractable, without status epilepticus (principal) ==

== ENCOUNTER 2025-07-18 18:25 | Emergency (ER) | payer OTHER ==
[~2025-07-18] VITALS: Ht 152.4 cm; Wt 61.6 kg
[~2025-07-18 18:25] MED LIST changes: -COLC0.6T47 PO; +COLC0.6T53 PO; -ZOLP5TAB PO; +ZOLP5TAB9 PO
[2025-07-18] MEDS ORDERED: ZOLO100T PO (19:01)
[2025-07-18 19:13] LABS: BASO # 0.0 10^3/uL (0.0-0.2); BASO % 0.3 % (0.0-1.0); EOS # 0.1 10^3/uL (0.0-0.5); EOS % 1.4 % (0.0-3.0); LYMPH # 2.4 10^3/uL (1.5-5.0); LYMPH % 27.7 % (24.0-44.0); MONO # 0.7 10^3/uL (0.0-0.8); MONO % 7.7 % (2.0-8.0); NEUTROPHILS # 5.4 10^3/uL (1.5-8.5); NEUTROPHILS % 62.7 % (36.0-66.0); PLATELET COUNT, AUTOMATED 349 10^3/uL (150-450)
[2025-07-18 19:33] LABS: CK-MB VALUE MASS 1.4 NG/ML (<3.6); HCG, SERUM QUANTITATIVE < 2.6 MIU/ML (<4.2)
[2025-07-18 19:34] LABS: CALCIUM LEVEL 9.1 MG/DL (8.5-10.1); CARBON DIOXIDE LEVEL 22 MMOL/L (20-31); CHLORIDE LEVEL 106 MMOL/L (98-107); CREATININE FOR GFR 0.63 MG/DL (0.55-1.30); GLOMERULAR FILTRATION RATE > 90.0 (>60); POTASSIUM SERUM 3.4 MMOL/L (3.5-5.1); SODIUM LEVEL 137 MMOL/L (136-145)
[2025-07-18 19:35] LABS: CPK CREATINE PHOSPHOKINASE 94 U/L (34-145); MB/CK RELATIVE INDEX 1.48 (< OR =4)
[2025-07-18 20:26] VITALS: TEMP 98.2
[2025-07-18 22:31] VITALS: BP 110/69
[2025-07-18] MEDS: NITROGLYCERIN 0.4 MG SUBL TABLET SL PRN (22:31)
[2025-07-18] MEDS: POTASSIUM CHLORIDE 10MEQ SR TABLET PO ONE (22:35)
[2025-07-18 22:55] LABS: CK-MB VALUE MASS 1.6 NG/ML (<3.6); CPK CREATINE PHOSPHOKINASE 125 U/L (34-145); MB/CK RELATIVE INDEX 1.28 (< OR =4)
[2025-07-18 23:55] VITALS: O2SAT 98
[2025-07-19 00:40] VITALS: BP 112/83
== END 2025-07-19 00:40 | disposition home or self-care (01) ==
LOC: M ED 18:25
DX: R07.9 Chest pain, unspecified (principal); M54.9 Dorsalgia, unspecified; G43.909 Migraine, unspecified, not intractable, without status migrainosus; J45.909 Unspecified asthma, uncomplicated; K21.9 Gastro-esophageal reflux disease without esophagitis; F17.200 Nicotine dependence, unspecified, uncomplicated; F17.290 Nicotine dependence, other tobacco product, uncomplicated; F12.10 Cannabis abuse, uncomplicated; Z79.899 Other long term (current) drug therapy; Z88.2 Allergy status to sulfonamides